=== PATIENT | male | born 1940 | race Caucasian/White ===

== ENCOUNTER 2018-03-08 14:36 | Inpatient (IN) ==
--- NOTE | 2018-03-08 14:48 | ED EKG INTERP ---
This chart was entered by Clara White Scribe, acting as scribe for Racheal Marinelli MD. EKG Interpretation - EKG Time of EKG reading by physician:: 14:45 EKG Read and Signed by:: Racheal Marinelli EKG Interpretation (*Must complete 3 of following elements*): Abnormal Rate: 77 Rhythm: nsr [place]: normal QRS: other (possible left atrial enlargement) CA Interval: normal Comments: anterior infarct, age undetermined Attestation - Physician/ SEB Attestation Patient care was provided by Advanced Practice Provider:: No The physician spent face to face time with patient:: Yes Advanced Practice Provider documentation review:: Supervising physician onsite and consulted in the evaluation and care of this patient. The physician did have a face to face encounter with the patient. This chart was documented by the indicated scribe, (Clara White Scribe) and accurately reflects the services I performed and decisions made by me, Racheal Marinelli MD, as attested by the provider's signature.
[2018-03-08] MEDS ORDERED: ASPIRIN PO ONE (14:50)
[2018-03-08 15:13] LABS: BASO# 0.01 X1000 (0.0-0.2); BASO% 0.1 % (0.0-0.8); EOS# 0.24 X1000 (0.0-0.7); EOS% 2.4 % (0.0-10.0); HEMATOCRIT 35.9 % (42.0-52.0); HEMOGLOBIN 11.7 g/dL (14.0-18.0); LYMPH# 0.74 X1000 (1.2-3.4); LYMPH% 7.3 % (20.5-51.1); MCH 30.5 PG (27-31); MCHC 32.6 g/dL (33-37); MCV 93.5 FL (81-99); MONO# 0.48 X1000 (0.11-0.59); MONO% 4.7 % (1.7-9.3); MPV 9.9 FL (7.4-10.4); NEUT# 8.71 X1000 (1.4-6.5); NEUT% 85.5 % (42.2-75.2); PLT 158 X1000 (130-400); RBC 3.84 XMIL (4.7-6.1); RDW 14.1 % (11.5-14.5); WBC 10.18 X1000 (4.8-10.8)
--- NOTE | 2018-03-08 15:14 | Diag Imaging Result Doc PS360 ---
EXAM: CHEST-2 VIEWS HISTORY: chest pain TECHNIQUE: Chest two views COMPARISON: 12/27/2017 FINDINGS: The lungs are hyperexpanded. The heart is not enlarged. The vessels are not distended. There are increased interstitial markings in the lung apices. No pleural effusions. IMPRESSION: Emphysema with likely apical fibrosis Electronically signed by Oscar Gould 03/08/2018 3:12 PM
[2018-03-08 15:29] LABS: INR 0.98; PROTIME 13.8 Seconds (11.0-16.0)
[2018-03-08 15:36] LABS: AGAP 11; ALB/GLOB RATIO 1.4; ALKALINE PHOSPHATASE 110 U/L (32-122); BUN 15 mg/dL (8-22); CALCIUM 8.9 mg/dL (8.8-10.2); CHLORIDE 101 mmol/L (98-107); COSMO 279; ESTIMATED GFR > 60; GLUCOSE 106 mg/dL (70-104); GOT 40 U/L (10-34); GPT 30 U/L (10-44); POTASSIUM 4.1 mmol/L (3.5-5.1); SODIUM 139 mmol/L (136-145); TCO2 27 mmol/L (25-35); TOTAL BILIRUBIN 0.53 mg/dL (0.20-1.00); TOTAL PROTEIN 6.8 g/dL (6.3-8.3)
[2018-03-08 15:38] LABS: CK PROFILE 218 U/L (24-204)
[2018-03-08 16:27] LABS: CK INDEX 2.2 (0.0-2.5); CK-MB 4.77 ng/mL (0.0-5.0)
[2018-03-08] MEDS ORDERED: DUONEB (A & A) INH ONE (16:55)
[2018-03-08] MEDS ORDERED: G.I. COCKTAIL PO ONE (16:55)
[2018-03-08] MEDS ORDERED: NS 1,000 ML IV ONE (18:25)
[2018-03-08] MEDS ORDERED: MORPHINE IV ONE ×2 (18:26→20:43)
[2018-03-08] MEDS ORDERED: ZOFRAN IV ONE (18:26)
[2018-03-08] MEDS ORDERED: NITROGLYCERIN LINGUAL SPRAY SL ONE (19:44)
--- NOTE | 2018-03-08 21:20 | Diag Imaging Result Doc PS360 ---
EXAM: CT ABD/PELVIS W/IV CONT ONLY HISTORY: abdominal pain TECHNIQUE: CT abdomen and pelvis with intravenous contrast COMPARISON: Comparison films are unavailable. FINDINGS: The gallbladder is distended. There is a small amount of pericholecystic fluid. The common bile duct measures 8 mm. Normal spleen, pancreas, and adrenal glands. Tiny liver. There are small scattered renal cysts. No hydronephrosis. Moderate atherosclerosis. No aortic aneurysm. No bowel obstruction. There is a penile implant. The urinary bladder is distended and is normal. Trace fluid in the pelvis. Normal appendix. No abscess. There are degenerative changes throughout the lumbar spine. IMPRESSION: 1.Distended gallbladder with trace pericholecystic fluid and trace fluid in the pelvis. Correlation needed to evaluate for cholecystitis. 2.Fatty liver 3.Atherosclerosis 4.Scattered renal cysts This exam was performed using automated exposure control, adjustment of mA or kV according to patient size, and/or use of iterative reconstruction technique. Electronically signed by Oscar Gould 03/08/2018 9:18 PM
[2018-03-08] MEDS ORDERED: ZOSYN 3.375 GM in NS 50 ML IV ONE (21:49)
--- NOTE | 2018-03-08 21:51 | PROVIDER DOCUMENTATION ---
This chart was entered by Clara White Scribe, acting as scribe for Christopher Blackman MD. HPI-Chest Pain - General Chief Complaint: Chest Pain Stated Complaint: CHEST PAIN Time Seen by Provider: 03/08/18 16:25 Source: patient Allergies/Adverse Reactions: Patient Allergies Allergy/AdvReac Type Severity Reaction Status Date / Time No Known Allergies Allergy Verified 07/10/13 15:37 Home Medications: Home Medication List Medication Instructions Recorded Confirmed Last Taken Type Omeprazole 20 mg PO DAILY 12/30/11 03/08/18 12/26/17 History Hydrocodone/Acetaminophen [[place] 5 mg PO BID PRN PRN 07/10/13 03/08/18 12/26/17 20:00 History 10-325 Tablet] Trazodone [Desyrel] 25 mg PO QHS PRN 12/27/17 03/08/18 12/26/17 History ATORVAstatin [Lipitor] 80 mg pe PO HS 03/08/18 03/08/18 Unknown History Aspirin [Low Dose Aspirin EC] 81 mg PO DAILY 03/08/18 03/08/18 Unknown History Metoprolol Succinate 25 mg PO DAILY 03/08/18 03/08/18 Unknown History Ticagrelor [Brilinta] 1 tab PO BID 03/08/18 03/08/18 Unknown History - History of Present Illness-CP Nature of Presenting Problem: 78 yom presents to the ed with last night with chest pain radiating to abdomen with sob. pt sts gerd has been worse recently and pcp increased his gerd medication x2 daily. pt on exam has normal exam and is nontoxic in appearance Location: reports: substernal Chest Pain Radiation: reports: epigastric Quality of Pain: reports: aching, burning Severity in ED: moderate (4/10) Onset/Duration: last night Timing: improving Context/Activities at Onset: reports: light activity Modifying Factors: improves with: nothing Associated Symptoms: reports: abdominal pain, fever/chills (99.1), shortness of breath. denies: back pain, dizziness, headache, nausea, vomiting Nitro Today/Relief: no nitro taken today Aspirin Treatment Today: no aspirin today Similar Symptoms Previously?: Yes (gerd) Recently Seen Here or By Another Healthcare Provider: Yes (seen pcp recenlty and increased gerd medications) Review of Systems - Adult - REVIEW OF SYSTEMS - ADULT Constitutional: reports: see HPI, fever (99.1). denies: chills, fatique Eyes: reports: no symptoms reported Ears, Nose, Mouth & Throat: reports: no symptoms reported Cardiovascular: reports: see HPI, chest pain. denies: palpitations, syncope Respiratory: reports: shortness of breath. denies: cough, wheezing Gastrointestinal: reports: see HPI, abdominal pain, frequent heartburn, poor appetite. denies: diarrhea, nausea, vomiting Genitourinary: reports: no symptoms reported Musculoskeletal: denies: back pain, neck pain Integumentary: reports: no symptoms reported Neurological: denies: dizziness/vertigo, headache/migraines Psychiatric: reports: no symptoms reported Endocrine: reports: no symptoms reported Hematologic/Lymphatic: reports: no symptoms reported Allergic/Immunologic: reports: no symptoms reported All Other Systems: Reviewed and Negative Past History - Adult - PAST MEDICAL HISTORY-ADULT Review of Records: reports: Old Records Reviewed, Nursing Assessment Review, Medications Reviewed, Social history reviewed & non-contributory. Major Childhood Illnesses: reports: denies history Cardiovascular: reports: denies history Respiratory: reports: denies history Gastrointestinal: reports: GERD Obstetrical/Gynecological: reports: denies history Genitourinary: reports: cancer (prostate) Musculoskeletal: reports: denies history Neurological: reports: denies history Endocrine/Immune: reports: denies history Other Conditions: reports: denies history - PRIOR SURGERIES/PROCEDURES Surgical/Procedure History: reports: reviewed, not pertinent - IMMUNIZATION STATUS Childhood Immunizations: See Nurse Assessment Flu Vaccine: See Nurse Assessment - FAMILY HISTORY Family History: reviewed, not pertinent - SOCIAL HISTORY Smoking: cigarettes, less than 1 pack/day Provider spent 3-5 mins advising pt. on dangers of tobacco.: Discussed manners to quit use, and f/u contacts for add'l counseling. Substance Use: denies Alcohol Use Frequency: never Living Situation: family Physical Exam-General - PHYSICAL EXAM-ADULT Initial Vital Signs Reviewed: Yes - CONSTITUTIONAL General Appearance: appears well, alert, no apparent distress - EYES Eyes: PERRL/EOMI, pink conjunctivae - HEAD, EARS, NOSE, MOUTH & THROAT HENMT: normocephalic/atraumatic, moist mucous membranes, normal ENT inspection - NECK Neck: non-tender, full range of motion, supple, normal inspection - RESPIRATORY Respiratory: chest non-tender, lungs clear, normal breath sounds - CARDIOVASCULAR Cardiovascular: normal peripheral pulses, regular rate, rhythm - CHEST (BREASTS) Chest/Breast: deferred - GASTROINTESTINAL (ABDOMEN) Abdominal Exam: normal bowel sounds, non tender - LYMPHATIC Lymphatic: no adenopathy - MUSCULOSKELETAL Back Exam: normal inspection, no CVA tenderness, no vertebral tenderness Extremity: normal range of motion, non-tender, normal inspection, no pedal edema , no calf tenderness, normal capillary refill, pelvis stable - SKIN Integumentary: normal color, normal turgor, warm/dry - NEUROLOGIC Neurologic: grossly normal, no motor/sensory deficits - PSYCHIATRIC Psych/Mental Status: normal mood/affect, normal thought content, normal thought process, oriented x 3 Progress - PLAN OF CARE/RESULTS Progress/Plan/Lab Results: Vital Signs - 8 hr 03/08/18 14:47 03/08/18 17:25 03/08/18 17:30 Temperature 99.1 F Pulse Rate 81 78 90 Respiratory Rate 18 20 24 Blood Pressure 145/53 133/61 O2 Sat by Pulse Oximetry 100 94 L 03/08/18 20:26 Temperature 99.0 F Pulse Rate 113 H Respiratory Rate 24 Blood Pressure 138/82 O2 Sat by Pulse Oximetry 95 Laboratory Results - last 24 hr 03/08/18 03/08/18 03/08/18 14:48 14:48 14:48 WBC 10.18 RBC 3.84 L Hgb 11.7 L Hct 35.9 L MCV 93.5 MCH 30.5 MCHC 32.6 L RDW Std Deviation 14.1 Plt Count 158 MPV 9.9 Immature Gran % (Auto) 0.0 Neut % (Auto) 85.5 H Lymph % (Auto) 7.3 L [place] % (Auto) 4.7 Eos % (Auto) 2.4 Baso % (Auto) 0.1 Immature Gran # (Auto) 0.00 Neut # (Auto) 8.71 H Lymph # (Auto) 0.74 L [place] # (Auto) 0.48 Eos # (Auto) 0.24 Baso # (Auto) 0.01 PT INR PTT (Actin FS) Sodium 139 Potassium 4.1 Chloride 101 Carbon Dioxide 27 Anion Gap 11 BUN 15 Creatinine 1.0 Estimated GFR/1.73 m2 > 60 BUN/Creatinine Ratio 15 Glucose 106 H Calculated Osmolality 279 Calcium 8.9 Total Bilirubin 0.53 AST 40 H ALT 30 Alkaline Phosphatase 110 Creatine Kinase 218 H Creatine Kinase Index 2.2 CK-MB (CK-2) 4.77 Troponin T Kcy-O-Yrzcecqsqtr Pept 722 H Total Protein 6.8 Albumin 4.0 Globulin 2.8 Albumin/Globulin Ratio 1.4 03/08/18 03/08/18 03/08/18 14:48 14:48 19:10 WBC RBC Hgb Hct MCV MCH MCHC RDW Std Deviation Plt Count MPV Immature Gran % (Auto) Neut % (Auto) Lymph % (Auto) [place] % (Auto) Eos % (Auto) Baso % (Auto) Immature Gran # (Auto) Neut # (Auto) Lymph # (Auto) [place] # (Auto) Eos # (Auto) Baso # (Auto) PT 13.8 INR 0.98 PTT (Actin FS) 28.0 Sodium Potassium Chloride Carbon Dioxide Anion Gap BUN Creatinine Estimated GFR/1.73 m2 BUN/Creatinine Ratio Glucose Calculated Osmolality Calcium Total Bilirubin AST ALT Alkaline Phosphatase Creatine Kinase 179 Creatine Kinase Index CK-MB (CK-2) Troponin T < 0.010 Huz-M-Ljxoaqgmkca Pept Total Protein Albumin Globulin Albumin/Globulin Ratio 03/08/18 19:10 WBC RBC Hgb Hct MCV MCH MCHC RDW Std Deviation Plt Count MPV Immature Gran % (Auto) Neut % (Auto) Lymph % (Auto) [place] % (Auto) Eos % (Auto) Baso % (Auto) Immature Gran # (Auto) Neut # (Auto) Lymph # (Auto) [place] # (Auto) Eos # (Auto) Baso # (Auto) PT INR PTT (Actin FS) Sodium Potassium Chloride Carbon Dioxide Anion Gap BUN Creatinine Estimated GFR/1.73 m2 BUN/Creatinine Ratio Glucose Calculated Osmolality Calcium Total Bilirubin AST ALT Alkaline Phosphatase Creatine Kinase Creatine Kinase Index CK-MB (CK-2) Troponin T < 0.010 Nij-W-Dbvuqlcynqj Pept Total Protein Albumin Globulin Albumin/Globulin Ratio Orders Category Date Time Status Cardiac Monitoring DIRECTED Care 03/08/18 14:50 Active Oxygen Therapy- ED Nursing DIRECTED Care 03/08/18 14:50 Active Saline Loc NOW Care 03/08/18 14:50 Active CHEST-2 VIEWS [RAD] Stat Exams 03/08/18 14:[address] ABD/PELVIS W/IV CONT ONLY [CT] Stat Exams 03/08/18 20:42 Completed CBC WITH ELECTRONIC DIFF [HEME] Stat Lab 03/08/18 14:48 Completed CK PROFILE [SP CHEM] Stat Lab 03/08/18 14:48 Completed CK PROFILE [SP CHEM] Stat Lab 03/08/18 19:10 Completed COMPREHENSIVE METABOLIC PANEL [CHEM] Stat Lab 03/08/18 14:48 Completed PRO B-NATRIURETIC PEPTIDE Stat Lab 03/08/18 14:48 Completed PROTIME WITH INR [COAG] Stat Lab 03/08/18 14:48 Completed PTT [COAG] Stat Lab 03/08/18 14:48 Completed TROPONIN T Stat Lab 03/08/18 14:48 Completed TROPONIN T Stat Lab 03/08/18 19:10 Completed 0.9% Sodium Chloride Inj [Ns] 1,000 ml Med 03/08/18 18:25 Discontinued IV 999 mls/hr Albuterol 2.5MG/Ipratrop 0.5MG [Duoneb (A & A)] Med 03/08/18 16:55 Discontinued 3 ml INH NOW ONE Aspirin Med 03/08/18 14:50 Discontinued 325 mg PO NOW ONE Lido/Barone Alk/Al&mg Hydrox [G.i. Cocktail] Med 03/08/18 16:55 Discontinued 30 ml PO NOW ONE Morphine Med 03/08/18 18:26 Discontinued 4 mg IV NOW ONE Morphine Med 03/08/18 20:43 Discontinued 4 mg IV NOW ONE Nitroglycerin [Nitroglycerin Lingual [place]] Med 03/08/18 19:44 Discontinued 0.4 gm SL PRN ONE Ondansetron [Zofran] Med 03/08/18 18:26 Discontinued 4 mg IV NOW ONE Aerosol Treatments Routine Oth 03/08/18 16:55 Completed Aerosol Treatments Stat Oth 03/08/18 16:55 Completed CP/SOB/Palp >45 yrs of Age Stat Oth 03/08/18 14:50 Ordered EKG [EKG] Stat Ther 03/08/18 14:50 Ordered Transfer/Admit Order [TRANSFER] Routine Transfer 03/08/18 21:03 Ordered Result Diagrams: 03/08/18 14:48 03/08/18 14:48 - REASSESSMENT Reassessment #1 Time Reassessed: 16:30 Status: unchanged Reassessment #2 Time Reassessed: 17:30 (has not got GI cocktail yet) Reassessment #3 Time Reassessed: 18:27 (will give NS, Zofrana nd morphine) Status: unchanged - XRAY 1 XRAY: Bilateral XRAY Study: Chest (EXAM: CHEST-2 VIEWS HISTORY: chest pain TECHNIQUE: Chest two views COMPARISON: 12/27/2017 FINDINGS: The lungs are hyperexpanded. The heart is not enlarged. The vessels are not distended. There are increased interstitial markings in the lung apices. No pleural effusions. IMPRESSION: Emphysema with likely apical fibrosis Electronically signed by Oscar Gould 03/08/2018 3:12 PM 03/08/18 151 Interpreting Physician: Oscar Gould MD Dictated Date/Time: 03/08/18 1511 cc: Racheal Marinelli MD; Cruz Sethi MD) - CT/MRI 1 CT Study: Abdomen, Pelvis Impression: Abnormal ([facility] [address], [address], [place] [address] Department of Imaging Patient: ASUNCION ROSE Date : 03/08/18#: [id number] : 1940DM Status: [facility]#: [id number] Age/Sex: 78/MRoom/Bed: Loc: ED Ordering Physician: Christopher Blackman MD Family Physician: Cruz Sethi MD Reason for Procedure: abdominal pain * Signed EXAM: CT ABD/PELVIS W/IV CONT ONLY HISTORY: abdominal pain TECHNIQUE: CT abdomen and pelvis with intravenous contrast COMPARISON: Comparison films are unavailable. FINDINGS: The gallbladder is distended. There is a small amount of pericholecystic fluid. The common bile duct measures 8 mm. Normal spleen, pancreas, and adrenal glands. Tiny liver. There are small scattered renal cysts. No hydronephrosis. Moderate atherosclerosis. No aortic aneurysm. No bowel obstruction. There is a penile implant. The urinary bladder is distended and is normal. Trace fluid in the pelvis. Normal appendix. No abscess. There are degenerative changes throughout the lumbar spine. IMPRESSION: 1.Distended gallbladder with trace pericholecystic fluid and trace fluid in the pelvis. Correlation needed to evaluate for cholecystitis. 2.Fatty liver 3.Atherosclerosis 4.Scattered renal cysts This exam was performed using automated exposure control, adjustment of mA or kV according to patient size, and/or use of iterative reconstruction technique. Electronically signed by Oscar Gould 03/08/2018 9:18 PM 03/08/182117 Interpreting Physician: Oscar Gould MD Dictated Date/Time: 03/08/182113 cc: Christopher Blackman MD; Cruz Sethi MD) - CONSULTS/PCP/HOSPITALIST Notification #1 *Consult/PCP/Hospitalist*: Dr naranjo Time Discussed: 19:46 (rec call cardiology after nitro) #2 Consult: Dr Richard Consult Disposition: Admit #3 Consult: Dr Naranjo Consult Disposition: Admit Departure - Departure Date of Disposition Decision: 03/08/18 Time of Disposition Decision: 21:42 DIAGNOSIS: Tobacco abuse, Acute cholecystitis Disposition: HOME 01 Certified Medical Emergency: Emergent Condition: Fair Additional Freetext Instructions: We have examined and treated you today on an emergency basis only. This was not a substitute for, or an effort to provide, complete medical care. In most cases , you must let your doctor check you again. Tell your doctor about any new or lasting problems. We cannot recognize and treat all injuries or illnesses in one Emergency Department visit. If you had special tests, such as X-rays or CT scans, will be reviewed by radiologist and will call you if there are any new suggestions Follow up with primary care provider in 1 to 2 days if no improvement. If you do not have a primary care provider, you need to choose one as soon as possible. Take medicines as prescribed. Monitor for any side effects or adverse events from medications. If any side effect, adverse event or rash develops, or if you suspect any other adverse reaction to the medication, then discontinue the medication immediately and contact clinic /PCP or go to the nearest ER. Narcotic meds / sedative meds instruction - patent advised not to drive, operate any machinery or go into water after taking meds as it may impair mental ability to react to the situation in an appropriate manner. Continue other current medicines. Follow up with PCP within 24-48 hours, or sooner if symptoms worsen or fail to improve. Patient / guardian verbalizes understanding of treatment plan, medication, and side effects and agrees with treatment plan. Patient leaves ER in stable condition and ambulatory state. Return to ER as needed. Discharge instructions reviewed verbally and given to patient in written form. Follow up with primary care provider. Referrals and Follow-Ups: Cruz Sethi MD [Primary Care Provider] - - Critical Care Note This patient required my direct & personal management of CC.: No Attestation - Physician/ SEB Attestation Patient care was provided by Advanced Practice Provider:: No The physician spent face to face time with patient:: Yes Advanced Practice Provider documentation review:: Supervising physician onsite and consulted in the evaluation and care of this patient. The physician did have a face to face encounter with the patient. This chart was documented by the indicated scribe, (Clara White Scribe) and accurately reflects the services I performed and decisions made by me, Christopher Blackman MD, as attested by the provider's signature.
[2018-03-09] MEDS ORDERED: TYLENOL PO PRN (00:34)
[2018-03-09] MEDS ORDERED: LOVENOX SUBQ SCH (00:34)
[2018-03-09] MEDS: PROTONIX IV SCH (02:30)
[2018-03-09] MEDS: SODIUM CHLORIDE 0.9% INJ SCH (02:30)
[2018-03-09] MEDS: MORPHINE IV PRN ×3 (02:30→14:30)
[2018-03-09] MEDS: ZOSYN 3.375 GM in NS 50 ML IV SCH ×4 (04:21→22:40)
[2018-03-09] MEDS: NS 1,000 ML IV SCH ×3 (05:00→22:26)
[2018-03-09 06:41] LABS: BASO# 0.01 X1000 (0.0-0.2); BASO% 0.1 % (0.0-0.8); EOS# 0.24 X1000 (0.0-0.7); EOS% 2.3 % (0.0-10.0); HEMOGLOBIN 11.4 g/dL (14.0-18.0); LYMPH# 0.47 X1000 (1.2-3.4); LYMPH% 4.5 % (20.5-51.1); MCH 30.3 PG (27-31); MCHC 32.6 g/dL (33-37); MCV 93.1 FL (81-99); MONO# 0.42 X1000 (0.11-0.59); MPV 10.3 FL (7.4-10.4); NEUT% 89.1 % (42.2-75.2); PLT 120 X1000 (130-400); RBC 3.76 XMIL (4.7-6.1); RDW 14.2 % (11.5-14.5); WBC 10.44 X1000 (4.8-10.8)
[2018-03-09 07:01] LABS: AGAP 10; BUN 11 mg/dL (8-22); CALCIUM 8.1 mg/dL (8.8-10.2); CHLORIDE 102 mmol/L (98-107); COSMO 275; ESTIMATED GFR > 60; GLUCOSE 97 mg/dL (70-104); POTASSIUM 3.9 mmol/L (3.5-5.1); SODIUM 138 mmol/L (136-145); TCO2 26 mmol/L (25-35)
[2018-03-09 07:32] LABS: EOS 8 % (1-10); LYMPHS 4 % (21-51); SEGS 88 % (42-75)
--- NOTE | 2018-03-09 07:40 | EKG Report ---
Test Performed on : 03/08/2018 2:45:24 PM Test Reason : chest pain Blood Pressure : / mmHG Vent. Rate : 077 BPM Atrial Rate : 077 BPM P-R Int : 154 ms QRS Dur : 094 ms QT Int : 384 ms P-R-T Axes : 073 050 095 degrees QTc Int : 434 ms Normal sinus rhythm. Possible Left atrial enlargement Anterior infarct , age undetermined Abnormal ECG When compared with ECG of 27-DEC-2017 12:49, Nonspecific T wave abnormality now evident in Inferior leads T wave inversion now evident in Anterior leads Unconfirmed Result
--- NOTE | 2018-03-09 07:41 | HISTORY AND PHYSICAL ---
PRIMARY CARE PHYSICIAN: Cruz Sethi MD REASON FOR ADMISSION: One-day history of retrosternal chest pain. HISTORY OF PRESENT ILLNESS: Mr. Carlos Patel is a 78-year-old man with past medical history of coronary artery disease status post stent 2 weeks ago. He also has a past medical history of hyperlipidemia and hypertension. He comes in today complaining of retrosternal chest pain, actually from last night with some mild shortness of breath before he went to bed. He awakened to still have the same symptoms and says they have pretty much remained the same in intensity. He reports that he woke up in addition to this with frequent belching and some mild epigastric discomfort. He says the retrosternal chest pain is like a burning sensation going down to his epigastrium. He says things got aggravated when he tried to eat a peanut butter sandwich a few hours later. He admits to having nausea, but no vomiting with his. He has no altered bowel movements or diarrhea. He denies any palpitations or lightheadedness. He denies any antecedent history of leg swelling, PND or orthopnea with this. No cough, fever or chills. He denies any arthralgia, rash, polyuria or polydipsia. Since he has been in the ER he was given a GI cocktail with no improvement in symptoms. He has received a sublingual nitroglycerin with no improvement. He got about 4 mg of morphine and said this made the biggest difference in his pain. ALLERGIES: Negative for any allergies. MEDICATIONS: Brilinta 90 mg b.i.d., Toprol 25 mg daily, atorvastatin 80 mg at bedtime, aspirin 81 mg daily, trazodone 25 mg at bedtime. PAST SURGICAL HISTORY: He has recent coronary artery stent, back surgery and bladder surgery. 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 He has had a prostatectomy. SOCIAL HISTORY: He does not smoke, drink or use illicit drugs. FAMILY HISTORY: First degrees relatives with breast cancer and stomach cancer, but no heart disease or diabetes in first-degree relatives. LABORATORY WORK: White count 10,000, hemoglobin 11, hematocrit 25, platelets 158,000. Glucose 106. AST is 40, ALT 30. CK is 218, follow-up CK 179, troponin x2 is negative, proBNP 722. PT is normal. Neutrophil count is actually 85%. A CT scan was ordered based on his symptoms because were initially concerned that he may have mesenteric ischemia; however, it did show a distended gallbladder with trace pericholecystic fluid and trace fluid in the pelvis, and recommended further imaging to correlate for acute cholecystitis. Fatty liver disease was noted. Atherosclerosis was also noted in the abdomen. PHYSICAL EXAMINATION: GENERAL: He is a thin, elderly man who is in mild distress from his pain. He is A and x3 with normal mood and affect. VITAL SIGNS: Blood pressure 138/82, heart rate 113, respirations 24, temperature 99. HEENT: Head is normocephalic, atraumatic. Eyes: PERRLA, EOMI. He is anicteric and not pale. ENT and oropharyngeal exam is grossly normal. No central cyanosis. NECK: Supple. He has noticeable JVD, no bruit or thyromegaly. CHEST: Surprisingly clear when I auscultated. There was good air entry in both lung zhang. CARDIOVASCULAR: First and second heart sounds are heard. No gallops, murmurs or rubs. Rhythm is regular. ABDOMEN: Scaphoid, soft with mild epigastric tenderness. Bowel sounds are normal, but I did not hear any bruit. RECTAL: Exam deferred. EXTREMITIES: The patient has 2+ pulses distally in all extremities. They are regular, symmetrical. No edema, clubbing or cyanosis. NEUROLOGIC: Other than mild intention tremor, no focal neurological deficits. Cranial nerves 2-12 are grossly intact. SKIN: Intact with no breakdown or erythema, with normal tumor. MUSCULOSKELETAL: Grossly normal with mild sarcopenia. ASSESSMENT: 1. Chest pain, somewhat atypical. Could be related to CT scan findings suggestive of cholecystitis. 2. Coronary artery disease status post stent 2 weeks ago. 3. Hypertension. 4. Hyperlipidemia. 5. Mild anemia. PLAN: I have ordered an abdominal sonogram to confirm that this patient does have acute cholecystitis and if it is equivocal maybe a HIDA scan might shed further light. The surgical team has been notified and will see him in the morning. The big problem with this patient is that he recently had a stent and for surgery to proceed they may need to either stop one or two of his antiplatelet medications. This would put the patient at high risk of having stent thrombosis and possible ACS. The big issue that needs to be resolved here is whether the patient can be treated electively with antibiotics for 4-6 weeks to pass by before surgery can be attempted. Unfortunately, I do not know what type of stent the patient had. It was a bare-metal stent, making it 4 weeks or 5, but if the patient has a drug-eluting stent, it may be much longer needed before surgery may be entertained. Will consult Cardiology for further input. Continue with beta blockers, statins and dual antiplatelet therapy. Also start the patient on Zosyn for empiric antibiotic treatment. Serial cardiac enzymes will also be done. Morphine will be administered for pain control. cc: MD Cruz Sanchez MD
--- NOTE | 2018-03-09 08:16 | Diag Imaging Result Doc PS360 ---
EXAM: US ABDOMEN-COMPLETE INDICATION: Acute cholecystitis COMPARISON: None. FINDINGS: The gallbladder wall appears thickened measuring up to 7 mm in thickness. There is trace pericholecystic fluid. Cholecystitis cannot be excluded. No gallstones are identified, however. The common bile duct is normal in diameter. Sonographic Moody's sign was reported to be negative. The liver is grossly unremarkable. Portal venous flow is hepatopetal. The visualized pancreas is unremarkable. The aorta and IVC are grossly unremarkable as imaged. The spleen is unremarkable. There is a 1.6 cm simple cyst at the upper pole of the right kidney. Kidneys are essentially unremarkable, otherwise. IMPRESSION: Apparent thickening of the gallbladder wall with trace pericholecystic fluid. Cholecystitis cannot be excluded. However, the netting inspector reported a negative sonographic Moody sign. Please correlate clinically. Electronically signed by Noah Gallardo 03/09/2018 8:14 AM
[2018-03-09] MEDS: ZOFRAN IV PRN ×2 (08:55→14:30)
[2018-03-09] MEDS ORDERED: ASPIRIN EC PO SCH (09:00)
[2018-03-09] MEDS: TOPROL XL PO SCH (09:18)
[2018-03-09] MEDS: BRILINTA PO SCH ×3 (09:18→22:25)
--- NOTE | 2018-03-09 09:28 | PROGRESS NOTE ---
DATE: 03/09/2018 He had a stent put in 3 weeks ago in [place]. He has been on Brilinta, which he has not been getting for about the last 12-[address] scan reveals the presence of dilated gallbladder with trace pancholecystic fluid and trace fluid in the pelvis. He has a fatty liver. Troponin is negative. EKG does not have any acute changes, except for the presence of anterior infarct that he had prior to the stent. We will continue IV piperacillin and get a surgical consult. cc: Cruz Sethi MD
--- NOTE | 2018-03-09 10:43 | GENERAL SURGERY CONSULTATION ---
DATE: 03/09/2018 REASON FOR CONSULT: I have been asked to see Mr. Patel for cholecystitis. HISTORY OF PRESENT ILLNESS: This is a 78-year-old gentleman who yesterday afternoon after eating a peanut butter and jelly sandwich developed nausea, vomiting, and abdominal discomfort. He denies any similar previous illness. Because of his nausea symptoms, he sought medical attention. He was admitted yesterday and underwent a workup revealing a dilated gallbladder with some pericholecystic fluid consistent with possible acute acalculous cholecystitis. He denies any similar previous attack. He does have a recent history of MD with a stent placed. He has been placed on Brilinta. The character of the stent and I do not know. PAST MEDICAL HISTORY: Pertinent for prostate cancer. PAST SURGICAL HISTORY: He has had a total prostatectomy and has had a urethral valve to prevent leakage, placed by Dr. Gonsales. He has had a back surgery in the distant past. He has had coronary stent placed in the past couple of months. SOCIAL HISTORY: He is . Denies smoking or illicit drug use or alcohol. FAMILY HISTORY: Pertinent for cancer but no heart disease. MEDICATIONS: Include Brilinta, Toprol, atorvastatin, aspirin, and trazodone. ALLERGIES: He has no known drug allergies. REVIEW OF SYSTEMS: As noted above and is negative in every subsystem except the GI subsystem. PHYSICAL EXAMINATION: Vital Signs: His temperature is 99.1 degrees, heart rate 71, blood pressure 118/46. General: He is thin. Neck: He has no cervical adenopathy. Respiratory: Bilateral breath sounds. Heart: Regular rate and rhythm. Abdomen: Scaphoid. He is nontender to palpation. He has a small right inguinal hernia. Extremities: No peripheral edema. Neurologic: He is awake and alert. LABORATORY: White count is 10,400. Chemistry is unremarkable. Troponin levels are negative. The ultrasound and CT scan suggests possible cholecystitis. ASSESSMENT: Possible acalculous cholecystitis in the setting of a patient on Brilinta for stent placement. PLAN: The Brilinta has been stopped. We will allow a couple of days for it and the clotting to normalize before considering surgery. In the meantime, I will allow him to have liquids. I will check a HIDA scan to prove patency of the cystic duct. cc: MD Cruz Vasquez MD
--- NOTE | 2018-03-09 15:19 | EKG Report ---
Test Performed on : 03/09/2018 3:07:17 PM Test Reason : CAD, Chest pain Blood Pressure : / mmHG Vent. Rate : 073 BPM Atrial Rate : 073 BPM P-R Int : 148 ms QRS Dur : 100 ms QT Int : 392 ms P-R-T Axes : 073 092 189 degrees QTc Int : 431 ms Normal sinus rhythm. Rightward axis Anterior infarct (cited on or before 08-MAR-2018) ST & T wave abnormality, consider lateral ischemia Abnormal ECG When compared with ECG of 08-MAR-2018 14:45, (Unconfirmed) Serial changes of Anterior infarct present Unconfirmed Result
--- NOTE | 2018-03-09 16:11 | CONSULTATION ---
DATE OF CONSULTATION: 03/09/2018 IMPRESSION: 1. Acute chest pain. Overall clinical presentation is somewhat atypical for myocardial ischemia in that patient's chest discomfort has been sustained for extended duration with normal serial troponins. 2. Abnormal abdominal CT study reporting gallbladder-wall thickening, with distended gallbladder and trace subha- cholecystic fluid. Raising concern regarding possible acute cholecystitis. 3. Atherosclerotic coronary disease. Patient presented with acute myocardial infarction 02/14/2018 and was found to have an acutely occluded/thrombosed mid left anterior descending coronary. He had emergent. Angioplasty/thrombectomy/drug-eluting stent placed to mid left anterior descending coronary. He has continued on dual anti-platelet therapy, since that time. Noninvasive imaging studies at that time indicated apical akinesis. 4. Hyperlipidemia. RECOMMENDATIONS: 1. Echocardiography. 2. The patient is indeed at high risk for stent thrombosis with interruption of dual anti- platelet therapy. This is certainly the case within 30 days of recent stent placement. Recommend continuing dual anti-platelet therapy until there is convincing clinical evidence that the patient needs an emergent cholecystectomy. This was discussed with Dr. Houston and this does not appear to be presently the case and further investigation is being pursued with HIDA scan. 3. May consider further evaluation of patient's coronary situation preoperatively. It may be reasonable to go ahead and consider coronary angiography for definitive evaluation given that noninvasive modalities of testing are not logistically possible. This patient will have HIDA scan in the a.m. and his echocardiography study is anticipated to be already abnormal at baseline. HISTORY: This 78-year-old white male with past history of atherosclerotic coronary disease, acute anteroapical myocardial infarction 02/14/2018 treated with emergent angioplasty/thrombectomy,/drug- eluting stent to mid left anterior descending coronary. Hyperlipidemia, hypertension, presented to the emergency room yesterday with acute chest pain. He describes substernal chest discomfort which he characterizes as a burning/pressure discomfort. There was some associated burning in the epigastric area. He states the discomfort is not quite like what he had with acute myocardial infarction last month. However he does relate that discomfort last month with acute SD was a substernal pressure discomfort. His current chest symptoms seem to be aggravated by eating. His chest discomfort has been pretty much persistent and relieved only with parenteral narcotic analgesics. GI cocktail failed to improve his symptoms. Sublingual nitroglycerin also failed to improve his symptoms. He presently relates very mild substernal discomfort and as the discomfort returns when the morphine wears off. Serial troponins have been normal. PAST MEDICAL HISTORY: 1. Atherosclerotic coronary disease as outlined above. 2. Hypertension. 3. Hyperlipidemia. 4. Prostate cancer. 5. Anemia. PAST SURGICAL HISTORY: Unspecified back surgery, prostatectomy, and unspecified bladder surgery. ALLERGIES: No known drug allergies. MEDICATIONS PRIOR TO ADMISSION: As listed. It was noted that he was Brilinta 90 mg p.o. b.i.d. and aspirin 81 mg p.o. daily in addition to Toprol-XL 25 mg p.o. daily and atorvastatin 80 mg p.o. daily. He was taking trazodone 25 mg p.o. at bedtime. SOCIAL HISTORY: He does not smoke nor use alcohol. FAMILY HISTORY: Negative for premature coronary disease. REVIEW OF SYSTEMS: Pulmonary: Negative. Gastrointestinal: Negative beyond history paternal grandfather present illness. Constitutional: Negative beyond history of present illness. Remainder review of systems negative/noncontributory beyond history of present illness with 14 total systems reviewed. PHYSICAL EXAMINATION: General: This is a thin, older white male in no distress. Vital signs: Blood pressure 136/51. Heart rate 73, oxygen saturation 96%. HEENT: Extraocular movements intact. Mucous membranes are moist. Neck: Supple. No jugular venous distention. There are no carotid bruits. Chest: Clear to auscultation. Cardiac: Reveals a regular rate and rhythm without appreciable murmur or gallop. Abdomen: Soft and nontender. I can elicit no right upper quadrant tenderness to palpation. Extremities: Without edema. Neurologic: Exam reveals him to be alert and fully oriented. Speech is fluent. He moves all 4 extremities equally well. EK-lead EKG not yet in electronic record. Report by Dr. Racheal Marinelli indicates sinus rhythm and anterior infarct of undetermined age. LABORATORY DATA: Includes a white blood cell count of 10.44, hematocrit 35.0, hemoglobin 11.4, platelet count 120,000. Sodium 138, potassium 3.9, chloride 102, carbon dioxide 26. BUN 11, creatinine 1.0, glucose 97, initial troponin less than 0.01. Followup troponin less than 0.01 and 3rd follow-up troponin less than 0.01. cc: MD Cruz Eaton MD
[2018-03-09] MEDS: LIPITOR PO SCH (22:25)
[2018-03-10] MEDS: ZOSYN 3.375 GM in NS 50 ML IV SCH ×4 (03:46→21:01)
[2018-03-10] MEDS ORDERED: NITROGLYCERIN ONE (06:40)
--- NOTE | 2018-03-10 07:24 | EKG Report ---
Test Performed on : 03/10/2018 06:50:54 AM Test Reason : chest pain Blood Pressure : / mmHG Vent. Rate : 089 BPM Atrial Rate : 089 BPM P-R Int : 132 ms QRS Dur : 082 ms QT Int : 386 ms P-R-T Axes : 057 033 069 degrees QTc Int : 469 ms Normal sinus rhythm. T wave abnormality, consider anterior ischemia Prolonged QT Abnormal ECG When compared with ECG of 09-MAR-2018 15:07, (Unconfirmed) Questionable change in QRS axis T wave inversion no longer evident in Inferior leads Nonspecific T wave abnormality has replaced inverted T waves in Lateral leads Confirmed by Mita BROWNING, Artis Hernandez ([id number]) on 03/10/2018 7:32:26 PM
--- NOTE | 2018-03-10 08:20 | ECHO REPORT ---
ORDER DATE: 03/10/2018 INTERPRETING PHYSICIAN: Dr. Rivera CLINICAL INDICATIONS: Chest pain, angina, recent stent. M-MODE MEASUREMENTS: Left ventricle end diastole: 3.5 cm. Left ventricle end systole: 2.2 cm. Posterior wall: 0.9 cm. Interventricular septum: 1.0 cm. Left atrium: 4.1 cm. Aortic root: 3.1 cm. SUMMARY OF 2-DIMENSIONAL IMAGING: The left ventricular function appears to be globally preserved in the range of 55-60%. There is hypokinesis of moderate degree involving the anteroapical segment specifically the distal septum, the distal anterior wall, the mid anteroseptal segment and the apex. The chamber is not dilated. Right ventricle and the atria appear to be normal. There is no pericardial effusion. The inferior vena cava is not dilated. The tricuspid valve shows a moderate degree of regurgitation. The pulmonary pressure is estimated at 42-47 mmHg. Pulmonic valve was normal. The mitral valve is normal. Color flow mapping indicates mild degree of regurgitation. Pulse wave Doppler of mitral inflow shows mild reversal of the E/A ratio. Tissue Doppler of septal and lateral mitral annulus averages 14 cm per second. Pulmonary venous flow is normal. There is no diastolic dysfunction. Aortic valve has 3 cusps. They open normally. Color flow mapping unremarkable. There is no pericardial effusion, mass and no thrombus. Clinical correction recommended. cc: MD Sandoval Antonio MD Amit V. Vora, MD
--- NOTE | 2018-03-10 08:25 | PROGRESS NOTE ---
DATE: 03/10/2018 SUBJECTIVE: The patient continues with episodic substernal chest discomfort. There has been no shortness of breath. He is having a HIDA scan done to further evaluate his gallbladder. OBJECTIVE: Vital Signs: Blood pressure 124/76, heart rate 87, oxygen saturation 96%. Neck: There is no significant jugular venous distention. Chest: Clear to auscultation. Cardiac Examination: Reveals a regular rate and rhythm without appreciable murmur or gallop. Extremities: There is no evidence of peripheral edema. Laboratory Data: Includes serial troponins consistent with less than 0.01 x 4 values. ECG shows sinus rhythm and T-wave abnormality, consider anterior ischemia versus residual changes from recent anteroapical [place]. There have been no serial changes. IMPRESSION: 1. Acute chest pain syndrome. Overall presentation is somewhat atypical for myocardial ischemia given sustained duration with normal serial troponins. However, it is difficult to exclude ischemia entirely. Alternative etiologies are being considered including gallbladder disease. Esophageal discomfort may also be considered. 2. Abnormal CT scan reportedly suggesting possible acute cholecystitis. 3. Atherosclerotic coronary disease. Patient presented with acute myocardial infarction 02/14/2018, was found to have acutely occluded thrombosed mid left anterior descending coronary artery. He had emergent angioplasty/thrombectomy/drug-eluting stent placed in mid left anterior descending coronary artery. He is continued on dual antiplatelet therapy with aspirin 81 mg daily and Brilinta since that time. Noninvasive studies at that time indicated apical akinesis. Repeat echocardiography pending. 4. Hyperlipidemia. RECOMMENDATIONS: 1. Followup echocardiography. 2. Definitive evaluation of his coronary arteries is probably prudent. I discussed with the patient and recommended coronary angiography to be certain of his stent patency. The rationale for this approach and alternative strategies were discussed, and he wishes to proceed. Potential hazards were reviewed. 3. Patient is at high risk for stent thrombosis with interruption of dual anti-platelet therapy. cc: MD Cruz Eaton MD
[2018-03-10] MEDS: MORPHINE IV PRN ×2 (08:59→13:06)
[2018-03-10] MEDS: ZOFRAN IV PRN ×2 (09:00→18:33)
--- NOTE | 2018-03-10 09:15 | PROGRESS NOTE ---
DATE: 03/10/2018 He is still operator gin in the right upper quadrant of the abdomen where the gallbladder is. He had HIDA scan done this morning. He had an echocardiogram, which is unremarkable. He probably has a drug-eluting stent. Brilinta has been restarted by Dr. Merino. We will revaluate him after the other HIDA scan results are back. cc: Cruz Sethi MD
[2018-03-10] MEDS: BRILINTA PO SCH ×2 (09:52→21:01)
[2018-03-10] MEDS: TOPROL XL PO SCH (09:53)
[2018-03-10] MEDS: PROTONIX IV SCH (09:53)
[2018-03-10] MEDS: NS 1,000 ML IV SCH ×3 (09:55→20:13)
[2018-03-10] MEDS ORDERED: HEPARIN 1000 UNITS/NS 2,000 UNIT/1,000 ML IV.SOLN ONE (10:49)
[2018-03-10 11:15] LABS: INR 1.24; PROTIME 16.6 Seconds (11.0-16.0)
[2018-03-10] MEDS ORDERED: VERSED ONE (11:23)
[2018-03-10] MEDS ORDERED: NS 1,000 ML ONE (11:23)
[2018-03-10] MEDS ORDERED: CLAVE TWINSITE 32 IN 11959 ONE (11:23)
[2018-03-10] MEDS ORDERED: DEMEROL ONE (11:23)
[2018-03-10] MEDS ORDERED: ANESTHESIA PB SET 88 IN 5742 ONE (11:23)
[2018-03-10 12:00] LABS: AGAP 13; BUN 12 mg/dL (8-22); CHLORIDE 103 mmol/L (98-107); COSMO 277; CREATININE 1.1 mg/dL (0.7-1.2); ESTIMATED GFR > 60; GLUCOSE 97 mg/dL (70-104); MAGNESIUM 1.8 mg/dL (1.5-2.7); POTASSIUM 3.5 mmol/L (3.5-5.1); SODIUM 139 mmol/L (136-145); TCO2 23 mmol/L (25-35)
--- NOTE | 2018-03-10 13:18 | CARDIAC CATH REPORT ---
DATE: 03/10/2018 PROCEDURE: 1. Left heart catheterization. 2. Selective bilateral coronary arteriography. 3. Left ventriculography. 4. Opacification of the right femoral artery with deployment of a 6-Prydeinig Angio -Seal device. HISTORY: A 78-year-old male presenting to the hospital with chest pain. He had received a stent to the LAD that was almost completely occluded with acute NV in January on by Dr. Alexey Reid at [facility]. Good results were obtained. The patient has been taking Brilinta and aspirin. He is not a smoker at this time. Heart catheterization recommended by Dr. Merino who saw the patient in consultation. Benefits, risks, complications discussed. He understood and requested to proceed. DESCRIPTION OF PROCEDURE: The patient came into the cardiac laborer [employer] in the fasting state. The right groin was prepped and draped in sterile fashion, anesthetized with lidocaine 1%. A 6-Prydeinig sheath was inserted into the right femoral artery by following the modified Seldinger technique. Using a 6-Prydeinig left Iris 4 catheter, the left coronary artery was selectively opacified. The aortic valve was negotiated with a right Iris catheter. Left ventriculogram was performed in the 60-degree SWISS projection, 30-degree JONATHAN projection by hand injection. Then using the right Iris catheter, the right coronary artery was selectively opacified in multiple projections. Then a 6-Prydeinig Angio-Seal device was deployed at the level of the right femoral artery following opacification of the right femoral artery. The case was discussed with Dr. Alexey Reid over the phone prior to closing the arteriotomy. The patient tolerated the procedure well without complications. SUMMARY OF THE HEMODYNAMIC FINDINGS: Central aortic pressure 102/37, left ventricular pressure 105/7. Post LV gram left ventricular pressure 105/11. Final central aortic pressure 105/50. LVEDP is normal. SUMMARY OF THE ANGIOGRAPHIC FINDINGS: 1. Left main coronary artery: This vessel appears to be anatomically normal, divides into LAD, a ramus intermedius and circumflex. The left main appears to be free of any significant obstruction. There may be a 20% tapering of the vessel prior to its bifurcation. 2. Left anterior descending coronary artery: This vessel shows a proximal diffuse stenosis of 40% to 50% prior to the area that has been previously stented. The stented segment is patent. The LAD gives rise to 2 small diagonal branches distally. The flow is LEILA grade 3. 3. Ramus intermedius: This vessel is probably a first diagonal branch but it behaves more like a ramus intermedius. This vessel is patent and free of any obstruction. 4. Circumflex: The circumflex is a nondominant system, gives rise to 2 small obtuse marginal branches and a small-sized atrial branch. Circumflex is free of obstruction. 5. Right coronary artery: The right coronary artery is a dominant system. It gives rise to the sinus carlyn branch. Distally it gives rise to a posterior descending branch and a posterolateral vessel. The right coronary artery is patent. No obstruction is noted. LEFT VENTRICULOGRAM: Left ventriculogram in the 30-degree JONATHAN projection and 60 -degree SWISS projection reveals overall preserved ejection fraction in the order of 55% to 60 % with focal akinesis of the apical septal segment. No mitral regurgitation noted. OPACIFICATION OF THE RIGHT FEMORAL ARTERY: The right femoral artery is normal. Angio-Seal device was deployed successfully. IMPRESSION: In summary, this study shows: 1. Patent stent to mid LAD with a proximal 40% to 50% diffuse stenosis that has been present before. No new changes are noted. The right coronary artery is patent. The circumflex is patent, and the ramus intermedius is patent. 2. Preserved global left ventricular systolic function. Ejection fraction 55% to 60% with apical septal akinesis. 3. Normal LVEDP. 4. No mitral regurgitation, no aortic stenosis. 5. Unremarkable right femoral artery. Successful deployment of Angio-Seal device. RECOMMENDATION: The patient will be treated medically at this time. I discussed the case with Dr. Alexey Reid who reviewed the pictures, and in his opinion from the angiographic viewpoint, there is really no need to intervene any further. We will see how the patient does clinically. We will probably discharge him home in the next 24- 48 hours. cc: MD Cruz Antonio MD MTDD
--- NOTE | 2018-03-10 13:58 | GENERAL SURGERY PROGRESS NOTE ---
DATE: 03/10/2018 TIME: 1:20 p.m. SUBJECTIVE: Mr. Patel had a HIDA scan this morning. I do not know the results. He had a cardiac cath today as well, and it showed patency of his vessels. He is back on his Brilinta because of his drug-eluting stent. OBJECTIVE: We will see what his HIDA scan shows and that will help us decide how urgent his gallbladder surgery may become. I have discussed this with he and his . cc: MD Cruz Vasquez MD
[2018-03-10] MEDS: NORCO-5 PO PRN (14:16)
[2018-03-10] MEDS: LIPITOR PO SCH (21:01)
[2018-03-11] MEDS: NS 1,000 ML IV SCH ×3 (04:01→22:58)
[2018-03-11] MEDS: ZOSYN 3.375 GM in NS 50 ML IV SCH ×5 (04:01→22:57)
--- NOTE | 2018-03-11 07:29 | Diag Imaging Result Doc PS360 ---
EXAM: HIDA SCAN W/O EJECT. FRACTION HISTORY: abd pain TECHNIQUE: Nuclear medicine HIDA scan COMPARISON: None. FINDINGS: 5.8 mCi Choletec administered. There is normal uptake within the liver. Normal excretion into the small bowel. Activity in the gallbladder fossa may simply be within the common bile duct are bowel rather than in the gallbladder. IMPRESSION: Questionable filling of the gallbladder. Electronically signed by Oscar Gould 03/11/2018 7:26 AM
--- NOTE | 2018-03-11 07:53 | EKG Report ---
Test Performed on : 03/10/2018 8:12:44 PM Test Reason : S/P [facility] Blood Pressure : / mmHG Vent. Rate : 071 BPM Atrial Rate : 071 BPM P-R Int : 142 ms QRS Dur : 090 ms QT Int : 396 ms P-R-T Axes : 053 024 096 degrees QTc Int : 430 ms Normal sinus rhythm. Possible Left atrial enlargement Anterior infarct , age undetermined ST & T wave abnormality, consider lateral ischemia Abnormal ECG When compared with ECG of 10-MAR-2018 06:50, Nonspecific T wave abnormality now evident in Inferior leads Inverted T waves have replaced nonspecific T wave abnormality in Anterolateral leads Confirmed by Mita BROWNING, Artis Hernandez ([id number]) on 03/11/2018 9:10:36 AM
--- NOTE | 2018-03-11 08:15 | GENERAL SURGERY PROGRESS NOTE ---
DATE: 03/11/2018 SUBJECTIVE: Mr. Patel is afebrile. Heart rate 90. Blood pressure 103/42. He had some nausea yesterday with p.o. intake, but denies nausea this morning. His abdomen is not tender. His HIDA scan was not read to this morning but shows a probable nonvisualization of his gallbladder, at best minimal visualization. ASSESSMENT AND PLAN: I think it is fair to assume he does have acalculous cholecystitis. In view of the mandate for Brilinta, this makes surgery for his gallbladder much riskier. I would recommend that we keep him on antibiotics to see if we can calm his cholecystitis down over the weekend and hopefully resolved it with antibiotic therapy and avoid surgery currently. If, however, he does not improve or worsens, then we may have to do his cholecystectomy on Brilinta, which would increase his bleeding risk significantly. He understands the quandary that we are in. [facility] will cover the weekend. cc: MD Cruz Vasquez MD
[2018-03-11] MEDS: TOPROL XL PO SCH (08:34)
[2018-03-11] MEDS: ASPIRIN PO SCH (08:34)
[2018-03-11] MEDS: PROTONIX IV SCH (08:34)
[2018-03-11] MEDS: BRILINTA PO SCH ×2 (08:34→20:10)
--- NOTE | 2018-03-11 10:05 | PROGRESS NOTE ---
DATE: 03/11/2018 SUBJECTIVE: Mr. Patel is doing better. He can eat now. He is slightly nauseous. He has a distended gallbladder. His catheterization studies showed about 40% blockage in LAD. I read the notes from Dr. Rivera, who talked to Dr. Reid and no further intervention is necessary. His ejection fraction is 55%. he had a HIDA scan done which revealed there was a questionable filling of the gallbladder on the HIDA scan. The patient's vital signs are stable. Electrolytes are stable. Magnesium is 1.8. He is getting IV Zosyn which we will continue is tolerating it well. cc: Cruz Sethi MD
[2018-03-11] MEDS ORDERED: SODIUM CHLORIDE 0.9% INJ SCH (12:45)
[2018-03-11] MEDS ORDERED: CARAFATE PO SCH (13:00)
--- NOTE | 2018-03-11 13:14 | PROGRESS NOTE ---
DATE: 03/11/2018 SUBJECTIVE: Patient continues with episodic substernal chest discomfort. There has been no abdominal discomfort. There has been no dyspnea. OBJECTIVE: Vital Signs: Blood pressure 114/50, heart rate 71, oxygen saturation 99%. There is no significant jugular venous distention. Chest: Clear to auscultation. Cardiac Exam: Reveals a regular rate and rhythm without appreciable murmur or gallop. Abdomen: Soft and nontender. There is no right upper quadrant tenderness. Extremities: Without edema. LABORATORY DATA: Includes a pro time 16.6, INR 1.24 yesterday. Magnesium is 1.8. Nuclear medicine HIDA scan reports questionable filling of the gallbladder. Coronary angiography demonstrates patent stent in left anterior descending coronary with approximately 40% segmental narrowing proximal to stent in left anterior descending coronary. IMPRESSION: 1. Acute chest pain syndrome. Evaluation suggests chest symptoms noncardiac and coronary angiography demonstrates patent stent in left anterior descending coronary artery. 2. Abnormal imaging study suggesting possible biliary source of symptoms. 3. Atherosclerotic coronary disease with acute myocardial infarction 02/14/2018 with patient being found to have an acutely occluded thrombosed mid LAD treated with emergent angioplasty, thrombectomy and drug-eluting stent to the mid left anterior descending coronary. Echocardiography this admission indicates left ventricular ejection fraction in the normal range 55 to 60% with hypokinesis of the anterior apical segment and distal septum, distal wall and mid anteroseptal segment of the apex. Coronary angiography this admission shows stent in LAD to be patent. RECOMMENDATIONS: 1. Patient is at high risk for stent thrombosis with interruption of dual anti-platelet therapy within 30 days of drug-eluting stent. If cholecystectomy imperative, it would probably be best to perform this on continued dual anti-platelet therapy with Brilinta and aspirin. 2. The risk of stent thrombosis with interruption of dual anti-platelet therapy will progressively decline over months 1 and 6 post drug-eluting stent placement. Ideally it is hoped that we could get the patient past 6 months post drug-eluting stent placement before Brilinta is interrupted. 3. Would aggressively try and treat esophagitis as well as give antibiotics for cholecystitis in hopes of alleviating his symptoms to facilitate a conservative approach to his noncardiac chest symptoms. cc: MD Cruz Eaton MD
[2018-03-11] MEDS: ZOFRAN IV PRN ×2 (14:32→19:54)
[2018-03-11] MEDS: MORPHINE IV PRN (14:32)
[2018-03-11] MEDS: CARAFATE PO SCH ×3 (14:35→20:15)
[2018-03-11] MEDS: PEPCID IV SCH (16:11)
[2018-03-11] MEDS ORDERED: SODIUM CHLORIDE 0.9% INJ PRN (16:21)
[2018-03-11] MEDS: PHENERGAN IV PRN ×2 (16:44→20:55)
[2018-03-11] MEDS: LIPITOR PO SCH (20:09)
[2018-03-12] MEDS: ZOSYN 3.375 GM in NS 50 ML IV SCH ×4 (03:17→21:37)
[2018-03-12] MEDS: PROTONIX IV SCH (06:19)
[2018-03-12] MEDS: PEPCID IV SCH ×2 (06:20→17:08)
[2018-03-12] MEDS: CARAFATE PO SCH ×3 (08:06→21:37)
[2018-03-12] MEDS: BRILINTA PO SCH ×2 (08:06→21:37)
[2018-03-12] MEDS: TOPROL XL PO SCH (08:06)
[2018-03-12] MEDS: ASPIRIN PO SCH (08:06)
--- NOTE | 2018-03-12 09:45 | GENERAL SURGERY PROGRESS NOTE ---
DATE: 03/12/2018 SUBJECTIVE: The patient denies any significant abdominal pain or nausea this morning. He is starting to drink some liquids without difficulty. OBJECTIVE: He is afebrile. Vital signs are stable. General: He is awake, alert, and oriented x3 in no acute distress. Gastrointestinal: Soft, nontender, nondistended. LABORATORY: None today. ASSESSMENT AND PLAN: A 78-year-old male with acalculous cholecystitis and severe coronary artery disease status post recent stent placement. I will continue to treat him conservatively with antibiotics and continue his dual anticoagulation therapy. Hopefully, he will recover well enough to avoid surgery at this time. cc: MD Cruz Guardado MD
[2018-03-12] MEDS: NS 1,000 ML IV SCH (12:23)
--- NOTE | 2018-03-12 13:33 | PROGRESS NOTE ---
DATE: 03/12/2018 SUBJECTIVE: The patient had some discomfort in the mid lower sternal area with deep inspiration but overall seems to be managing better. OBJECTIVE: T-max 100.2; current 99.6. Pulse 71, respiration 16, blood pressure 117/51, O2 sat 95% to 100% percent on 2 to 2.5. CV: RRR. Lungs clear. Abdomen soft. Active bowel sounds. Mild tenderness in right epigastrium and right upper quadrant area. Extremities: Trace lower extremity edema. No cords. Neurologic: Cranial nerves are intact. He moves all extremities well. ASSESSMENT: 1. Acalculous cholecystitis. 2. Esophagitis. 3. Coronary artery disease with history of recent drug-eluting stent placement on dual anti- platelet therapy with strict requirement. 4. Hypercholesterolemia. PLAN: Patient on IV Zosyn and seems to be a little better. Continue IV Pepcid. Continue aspirin and Brilinta. He is also on IV Protonix. He is on his atorvastatin and metoprolol. He is receiving Carafate. Continue supportive measures in hopes he will be able to avoid surgery this close to stent placement in his coronary vessels. cc: MD Cruz Velasquez MD
[2018-03-12] MEDS: MORPHINE IV PRN (14:12)
[2018-03-12] MEDS: PHENERGAN IV PRN (21:36)
[2018-03-12] MEDS: LIPITOR PO SCH (21:36)
[2018-03-13] MEDS: ZOSYN 3.375 GM in NS 50 ML IV SCH ×4 (03:41→22:14)
[2018-03-13] MEDS: PEPCID IV SCH ×2 (05:16→16:54)
[2018-03-13] MEDS: PROTONIX IV SCH ×3 (05:16→07:10)
[2018-03-13] MEDS: NS 1,000 ML IV SCH ×2 (05:28→08:30)
[2018-03-13] MEDS: CARAFATE PO SCH ×3 (08:29→20:09)
[2018-03-13] MEDS: ASPIRIN PO SCH (08:29)
[2018-03-13] MEDS: BRILINTA PO SCH ×2 (08:29→20:08)
[2018-03-13] MEDS: TOPROL XL PO SCH (08:29)
--- NOTE | 2018-03-13 09:04 | GENERAL SURGERY PROGRESS NOTE ---
DATE: 03/13/2018 SUBJECTIVE: The patient denies any significant abdominal pain, nausea, or vomiting. He is tolerating some food, but says he cannot eat much. I think it is because he does not like it. OBJECTIVE: Vital signs: He is afebrile. Vital signs are stable. General: He is awake, alert, oriented x3. No acute distress. Gastrointestinal: Soft, nontender, nondistended. ASSESSMENT AND PLAN: A 78-year-old male with acalculous cholecystitis and coronary artery disease, status post stent placement, on anticoagulation. At this time there appears to be some improvement of his cholecystitis symptomatically and we will continue with conservative therapy with antibiotics at this time and advance his diet as tolerated. cc: MD Cruz Guardado MD
--- NOTE | 2018-03-13 12:19 | PROGRESS NOTE ---
DATE: 03/13/2018 SUBJECTIVE: The patient seems to be feeling a little better. He is still having some belching when he eats, but overall is eating fairly well. OBJECTIVE: Vital signs: Afebrile. Vital signs stable. He ate 100% of his meal this morning. CARDIOVASCULAR: Regular rate and rhythm. Lungs: Clear. Abdomen: Soft, active bowel sounds. No pinpoint tenderness. Extremities: No calf tenderness, cords or edema. ASSESSMENT: 1. Acalculous cholecystitis. 2. Esophagitis. 3. Coronary artery disease with history of recent drug-eluting stent placed. Patient remains on dual anti-platelet therapy with strict requirement. 4. Hypercholesterolemia. PLAN: Continue IV Zosyn and IV Pepcid and IV Protonix. He is on Carafate as well. Continue aspirin and Brilinta. He seems to be settling down some in regard to #1. We will continue conservative management. cc: MD Cruz Velasquez MD
[2018-03-13] MEDS: ZOFRAN IV PRN (14:33)
[2018-03-13] MEDS: PHENERGAN IV PRN (20:08)
[2018-03-13] MEDS: LIPITOR PO SCH (20:09)
[2018-03-13] MEDS: MORPHINE IV PRN (22:07)
[2018-03-14] MEDS: PEPCID IV SCH ×2 (04:17→17:19)
[2018-03-14] MEDS: ZOSYN 3.375 GM in NS 50 ML IV SCH ×4 (04:18→21:04)
[2018-03-14] MEDS: NS 1,000 ML IV SCH (04:18)
[2018-03-14] MEDS: PROTONIX IV SCH (06:20)
[2018-03-14] MEDS: ASPIRIN PO SCH (08:26)
[2018-03-14] MEDS: CARAFATE PO SCH ×3 (08:26→21:04)
[2018-03-14] MEDS: TOPROL XL PO SCH (08:26)
[2018-03-14] MEDS: BRILINTA PO SCH ×2 (08:26→21:04)
--- NOTE | 2018-03-14 09:16 | PROGRESS NOTE ---
DATE: 03/14/2018 SUBJECTIVE: Mr. Patel is doing well, except that he gets nauseous as the day advances and needs Phenergan. OBJECTIVE: Abdomen: Is soft, nontender. Lungs: Clear. Cardiac: Heart sounds are normal. He denies having any chest pains. ASSESSMENT AND PLAN: He has acalculous cholecystitis, recently placed drug-eluding stent in left anterior descending and he had acute myocardial infarction prior to that. He is on anti-platelet therapy. Overall condition is otherwise stable. The family and the patient also understand the risk either way, especially risk after surgery if he stops the Brilinta. Overall condition is otherwise stable. We will continue with the current management. cc: Cruz Sethi MD
[2018-03-14 10:30] LABS: BASO# 0.13 X1000 (0.0-0.2); BASO% 1.1 % (0.0-0.8); EOS# 3.25 X1000 (0.0-0.7); EOS% 27.2 % (0.0-10.0); HEMATOCRIT 32.8 % (42.0-52.0); HEMOGLOBIN 10.7 g/dL (14.0-18.0); IMM GRAN# 0.03 X1000 (0.0-0.04); IMM GRAN% 0.3 % (0.0-0.5); LYMPH# 1.51 X1000 (1.2-3.4); LYMPH% 12.6 % (20.5-51.1); MCH 29.7 PG (27-31); MCHC 32.6 g/dL (33-37); MCV 91.1 FL (81-99); MONO# 0.65 X1000 (0.11-0.59); MONO% 5.4 % (1.7-9.3); MPV 10.3 FL (7.4-10.4); NEUT# 6.37 X1000 (1.4-6.5); NEUT% 53.4 % (42.2-75.2); PLT 114 X1000 (130-400); RDW 14.2 % (11.5-14.5); WBC 11.94 X1000 (4.8-10.8)
[2018-03-14 10:36] LABS: ALB/GLOB RATIO 0.8; ALBUMIN 2.3 g/dL (3.5-5.0); DIRECT BILIRUBIN 0.4 mg/dL (0.00-0.20); TOTAL BILIRUBIN 0.77 mg/dL (0.20-1.00); TOTAL PROTEIN 5.2 g/dL (6.3-8.3)
--- NOTE | 2018-03-14 11:21 | GENERAL SURGERY PROGRESS NOTE ---
DATE: 03/14/2018 Ms. Patel says he feels some better. He does well in the morning, but seems to have more troubles in the afternoon with nausea and yesterday, pain and nausea. He required morphine and Phenergan last night. He is afebrile. Abdomen is soft, and he does not have a particular amount of tenderness. He did say that "something has to be done." Today, I will re-ultrasound his gallbladder to look and see how dilated it is. We will repeat his CBC and hepatic function test. Then after that, we will decide the benefits and risks of operative intervention. cc: MD Cruz Vasquez MD
--- NOTE | 2018-03-14 12:52 | Diag Imaging Result Doc PS360 ---
EXAM: US GB < RUQ (LIMITED) HISTORY: acalculous cholecystitis TECHNIQUE: Right upper quadrant ultrasound COMPARISON: 03/09/2018 FINDINGS: Normal pancreas. Moderate atherosclerosis. No aortic aneurysm. Normal inferior vena cava. No focal hepatic abnormality. No ascites in the right upper quadrant. Normal right kidney. No hydronephrosis. There is a 1.7 cm cyst superiorly on the right kidney. The gallbladder wall remains thickened. No stones. The common bile duct measures 6 mm. IMPRESSION: Thickening to the gallbladder wall which could represent acute cholecystitis. Electronically signed by Oscar Gould 03/14/2018 12:50 PM
[2018-03-14] MEDS: ZOFRAN IV PRN ×2 (15:36→21:12)
[2018-03-14] MEDS: MORPHINE IV PRN ×2 (15:36→21:12)
--- NOTE | 2018-03-14 19:28 | PROGRESS NOTE ---
DATE: 03/14/2018 SUBJECTIVE: The patient relates no chest discomfort since yesterday. He still has some tendency for nausea when he eats. OBJECTIVE: Vital Signs: Blood pressure 125/51, heart rate 67, oxygen saturation 100% on room air. There is no significant jugular venous distention. Chest: Clear to auscultation. Cardiac exam: Reveals a regular rate and rhythm without appreciable murmur or gallop. Abdomen: Soft. There is no abdominal tenderness. There is no right upper quadrant tenderness. Extremities: Are without edema. LABORATORY DATA: Includes a white blood cell count 11.94, hematocrit 32.8, hemoglobin 10.7, platelet count 114,000. Total bilirubin 0.77, direct bilirubin 0.4, AST 50, ALT 87, alkaline phosphatase 579, albumin 2.3. IMPRESSION: 1. Acute chest pain syndrome with evaluation suggesting noncardiac etiology and very likely related to gallbladder. 2. Atherosclerotic coronary disease with acute myocardial infarction. 02/14/2018 treated with emergent angioplasty/stenting with thrombectomy of acutely thrombosed mid left anterior descending coronary. Drug-eluting stent was utilized. Repeat angiography this admission shows stent to be widely patent. Left ventricular ejection fraction 55 to 60% with hypokinesis of apical anterior wall, apical septum, and apex. RECOMMENDATIONS: 1. Continue current cardiovascular regimen unchanged. 2. Patient is high risk for stent thrombosis with interruption of dual anti-platelet therapy, specifically Brilinta. If cholecystectomy imperative, it would probably be best to perform this on continued dual anti-platelet therapy with Brilinta and aspirin. This was discussed with the patient. cc: MD Cruz Eaton MD
[2018-03-14] MEDS: LIPITOR PO SCH (21:04)
[2018-03-15] MEDS: DESYREL PO PRN (00:47)
[2018-03-15] MEDS: NS 1,000 ML IV SCH ×2 (03:51→22:39)
[2018-03-15] MEDS: ZOSYN 3.375 GM in NS 50 ML IV SCH ×5 (03:51→22:11)
[2018-03-15] MEDS: PEPCID IV SCH ×3 (03:51→17:16)
[2018-03-15] MEDS: PROTONIX IV SCH (06:05)
[2018-03-15] MEDS: SODIUM CHLORIDE 0.9% INJ SCH (06:05)
[2018-03-15] MEDS: BRILINTA PO SCH ×2 (08:32→20:15)
[2018-03-15] MEDS: CARAFATE PO SCH ×3 (08:32→20:15)
[2018-03-15] MEDS: TOPROL XL PO SCH (08:32)
[2018-03-15] MEDS: ASPIRIN PO SCH (08:32)
--- NOTE | 2018-03-15 09:11 | PROGRESS NOTE ---
DATE: 03/15/2018 SUBJECTIVE: Mr. Patel's vital signs are stable. CBC shows that the white count is slightly elevated at 11.94, hemoglobin has been down to 10.7 from 11.4. The liver enzymes have been somewhat elevated. Alkaline phosphatase in particular is 579. We are continuing IV Zosyn. cc: Cruz Sethi MD
[2018-03-15] MEDS: ZOFRAN IV PRN (14:40)
--- NOTE | 2018-03-15 14:46 | PROGRESS NOTE ---
DATE: 03/15/2018 SUBJECTIVE: Patient continues without further chest discomfort. However, he does relate tendency for postprandial nausea. OBJECTIVE: Vital Signs: Blood pressure 120/52, heart rate 66, oxygen saturation 99% on room air. There is no significant jugular distention chest is clear to auscultation bilaterally cardiac exam was a regular rate and rhythm without appreciable murmur or gallop. There is no evidence of peripheral edema. LABORATORY DATA: Includes a white blood cell count 11.9 form adequate. 32.8 hemoglobin 10.7 and platelet count 114,000. IMPRESSION: 1. Acute chest pain syndrome with evaluation suggesting noncardiac etiology and likely related to gallbladder disease. 2. Atherosclerotic coronary disease with acute myocardial infarction 02/14/2018, treated with emergent angioplasty/stenting with thrombectomy of acutely thrombosed mid left anterior descending coronary artery. Drug-eluting stent was utilized. Recent angiography: The admission shows stent to be widely patent. Left ventricular ejection fraction 55 to 60 percent. With hypokinesis of apical anterior wall. The apical septum and apex. RECOMMENDATIONS: 1. Continue current cardiovascular regimen unchanged. 2. Patient is at high risk for stent thrombosis with interruption of dual anti-platelet therapy, specifically Brilinta. If cholecystectomy impaired, it would e probably be best to perform this on continue dual anti-platelet therapy with Brilinta and aspirin. This was discussed with the patient and his . cc: MD Cruz Eaton MD
--- NOTE | 2018-03-15 16:48 | GENERAL SURGERY PROGRESS NOTE ---
DATE: 03/15/2018 TIME: 4:25 p.m. SUBJECTIVE: Mr. Patel continues to be symptomatic. He does not tolerate p.o. intake well. He is nauseated all the time. He is not particularly tender on examination. OBJECTIVE: Vital Signs: He is afebrile. Heart rate is 62. Blood pressure is 133/57. White count was 11,900 yesterday. His LFTs remain elevated with an ALK PHOS of 579. The ultrasound yesterday showed a persistently dilated gallbladder and some thickening of the wall. ASSESSMENT AND PLAN: In view of his persistent symptoms I think we should proceed with a cholecystectomy. We discussed the increased risks because of his antiplatelet therapy. He understands and he wants to proceed and we have him on the schedule for tomorrow, 03/16/2018. They understand and agree to proceed. cc: MD Cruz Vasquez MD
[2018-03-15] MEDS: PHENERGAN IV PRN (19:01)
[2018-03-15] MEDS: NORCO-5 PO PRN (19:51)
[2018-03-15] MEDS: MORPHINE IV PRN (20:15)
[2018-03-15] MEDS: LIPITOR PO SCH (20:15)
[2018-03-16] MEDS: ZOSYN 3.375 GM in NS 50 ML IV SCH ×4 (03:05→21:56)
[2018-03-16] MEDS: PEPCID IV SCH ×2 (04:07→16:49)
[2018-03-16] MEDS: PROTONIX IV SCH ×2 (05:57→06:02)
[2018-03-16] MEDS: SODIUM CHLORIDE 0.9% INJ SCH (05:57)
[2018-03-16] MEDS: TOPROL XL PO SCH (09:03)
--- NOTE | 2018-03-16 09:12 | PROGRESS NOTE ---
DATE: 03/16/2018 Mr. Patel is doing well this morning, except that he has mild headache. His lungs are clear. Heart sounds are normal. He is in regular sinus rhythm. Vital signs are stable. He is going for cholecystectomy this morning. He understands the risk, as he is on 2 anti-platelet agents. Overall condition is satisfactory before the surgery. cc: Cruz Sethi MD
[2018-03-16] MEDS ORDERED: FENTANYL ONE (09:36)
[2018-03-16] MEDS ORDERED: DIPRIVAN 1% ONE (09:42)
[2018-03-16] MEDS ORDERED: XYLOCAINE-MPF 2% ONE ×2 (09:42→10:14)
[2018-03-16] MEDS ORDERED: QUELICIN (DOSE) ONE (09:43)
[2018-03-16] MEDS ORDERED: NORCURON ONE (09:44)
[2018-03-16] MEDS ORDERED: SODIUM CHLORIDE 0.9% 10 ML ONE (09:44)
[2018-03-16] MEDS ORDERED: PEPCID ONE (10:03)
[2018-03-16] MEDS ORDERED: REGLAN ONE (10:03)
[2018-03-16] MEDS ORDERED: SENSORCAINE 0.5%-EPI 1:200,000 ONE (10:13)
[2018-03-16] MEDS ORDERED: AMIDATE ONE (10:14)
[2018-03-16] MEDS ORDERED: LR 1,000 ML ONE (10:14)
[2018-03-16] MEDS ORDERED: SODIUM CHLORIDE 0.9% ONE (10:14)
[2018-03-16] MEDS ORDERED: ZOFRAN ONE (10:36)
[2018-03-16] MEDS ORDERED: OFIRMEV 1000 MG/ISOTONIC SOLN 1,000 MG/100 ML BOTTLE ONE (10:44)
[2018-03-16] MEDS ORDERED: ROBINUL ONE (11:10)
[2018-03-16] MEDS ORDERED: NEOSTIGMINE ONE (11:10)
--- NOTE | 2018-03-16 11:39 | OPERATIVE NOTE ---
PROCEDURE DATE: 03/16/2018 PROCEDURE: Laparoscopic cholecystectomy with operative cholangiogram. SURGEON: Lencho Houston MD. TOPSTITCHER LOCKSTITCH: SHELLIE Porter. PREOPERATIVE DIAGNOSIS: Acalculous cholecystitis. POSTOPERATIVE DIAGNOSIS: Acalculous cholecystitis. FINDINGS: The cholangiogram revealed a normal size common duct, free flow in the duodenum. No intraluminal filling defects were seen. DESCRIPTION OF PROCEDURE: After satisfactory general endotracheal anesthesia was achieved, the abdomen was prepped and draped in a sterile fashion. We anesthetized the skin at the base of the umbilicus, incised the skin, and carried our incision of the fascia. We scored the fascia, introduced 11 trocar Optiview technique into the abdominal cavity. We insufflated through this trocar. Under direct visualization, used a 5 trocar midclavicular line, a 5 trocar near the anterior axillary line, 11 mm trocar in the midepigastrium. We placed the patient in reverse Trendelenburg and turned him to the left. The liver appeared somewhat floppy. The colon was a bit dilated. We identified the fundus of the gallbladder, reflected it cephalad. There was edema in the wall of the gallbladder. We began dissection of the triangle of Calot, identified the cystic duct. We identified the cystic artery. We developed the space and obtained a critical view. We then clipped the artery proximally x2, distally x1, and divided it. We clipped the cystic duct near the junction of the gallbladder. We then incised the cystic duct, introduced a [place] catheter, shot the cholangiogram. The findings above were noted. We removed the cholangiogram catheter, clipped the cystic duct on the opposite side of cystic ductotomy x2, and then transected it. We then used the cautery spatula to dissect the gallbladder away from the liver. We achieved good hemostasis, as we progressed up the gallbladder fossa. After complete separation of gallbladder from the liver, we changed video laparoscope through the mid epigastric trocar. We introduced a claw forceps through the umbilical trocar and grasped the infundibulum. We delivered the gallbladder out of the abdominal cavity through the umbilical trocar site. We looked back into the gallbladder fossa, and it was hemostatic. We aspirated what fluid he had collected. We then were satisfied that the bleeding was not a problem. We then desufflated and removed our trocars. We closed the fascia in the epigastrium with a 2-0 Polysorb fascial stitch. We closed the fascia at the umbilicus with 2-0 Polysorb fascial stitch. We placed 2-0 Polysorb stitches in the 5 trocar sites as well. We then closed the skin at each incision with 4-0 Polysorb subcuticular stitches. Sterile OpSite were applied. He tolerated it well. Was sent to the recovery room in satisfactory condition. cc: MD Cruz Vasquez MD
[2018-03-16] MEDS: ASPIRIN PO SCH (13:27)
[2018-03-16] MEDS: BRILINTA PO SCH ×2 (13:28→21:54)
[2018-03-16] MEDS: CARAFATE PO SCH ×3 (13:28→21:53)
[2018-03-16] MEDS: NORCO-10 PO PRN ×2 (13:28→19:07)
--- NOTE | 2018-03-16 14:20 | Diag Imaging Result Doc PS360 ---
EXAM: OPERATIVE CHOLANGIOGRAM 03/16/2018 HISTORY: GALLBLADDER DX TECHNIQUE: Intraoperative cholangiogram one view, 31 seconds fluoroscopy time, 0.13 mGy. COMMENT: There is contrast in the duodenum and no filling defects are demonstrated in the common hepatic or common bile ducts. IMPRESSION: No evidence retained stones. Electronically signed by Abdiel Sanchez 03/16/2018 2:18 PM
[2018-03-16] MEDS: NS 1,000 ML IV SCH (16:49)
[2018-03-16] MEDS: LIPITOR PO SCH (21:53)
[2018-03-16] MEDS: DESYREL PO PRN (21:54)
[2018-03-17] MEDS: NS 1,000 ML IV SCH (01:26)
[2018-03-17] MEDS: ZOSYN 3.375 GM in NS 50 ML IV SCH ×2 (03:25→09:40)
--- NOTE | 2018-03-17 05:05 | PROGRESS NOTE ---
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 He had a cholecystectomy done earlier today by Dr. Houston. It seems like he is not bleeding and the wound looks very well. Vital signs are stable. We are going to repeat the CBC in the morning. cc: Cruz Sethi MD
[2018-03-17 05:33] LABS: BASO# 0.05 X1000 (0.0-0.2); BASO% 0.4 % (0.0-0.8); EOS# 3.84 X1000 (0.0-0.7); EOS% 32.2 % (0.0-10.0); HEMATOCRIT 34.1 % (42.0-52.0); HEMOGLOBIN 11.1 g/dL (14.0-18.0); LYMPH# 1.42 X1000 (1.2-3.4); LYMPH% 11.9 % (20.5-51.1); MCH 29.8 PG (27-31); MCHC 32.6 g/dL (33-37); MCV 91.7 FL (81-99); MONO# 0.64 X1000 (0.11-0.59); MONO% 5.4 % (1.7-9.3); MPV 10.1 FL (7.4-10.4); NEUT# 5.97 X1000 (1.4-6.5); NEUT% 50.1 % (42.2-75.2); PLT 184 X1000 (130-400); RBC 3.72 XMIL (4.7-6.1); RDW 14.5 % (11.5-14.5); WBC 11.92 X1000 (4.8-10.8)
[2018-03-17 05:44] LABS: AGAP 9; BUN 10 mg/dL (8-22); CHLORIDE 107 mmol/L (98-107); COSMO 282; ESTIMATED GFR > 60; GLUCOSE 90 mg/dL (70-104); POTASSIUM 3.4 mmol/L (3.5-5.1); SODIUM 142 mmol/L (136-145); TCO2 26 mmol/L (25-35)
[2018-03-17] MEDS: PROTONIX IV SCH (06:32)
[2018-03-17] MEDS: PEPCID IV SCH (06:32)
[2018-03-17] MEDS: CARAFATE PO SCH (08:11)
[2018-03-17] MEDS: ASPIRIN PO SCH (08:11)
[2018-03-17] MEDS: BRILINTA PO SCH (08:11)
[2018-03-17] MEDS: TOPROL XL PO SCH (08:11)
[2018-03-17 08:35] LABS: EOS 28 % (1-10); LYMPHS 16 % (21-51); MONO 8 % (1-9); SEGS 48 % (42-75)
--- NOTE | 2018-03-17 09:44 | PROGRESS NOTE ---
DATE: 03/17/2018 SUBJECTIVE: Mr. Patel is doing better. No chest pain. He overall is feeling better. He tolerated liquid well. OBJECTIVE: Lungs: Clear. Heart: Sounds are normal. There is no current bleeding. LABORATORIES: CBC does not show any big change. Actually hemoglobin has come up a little bit. Overall condition is unchanged. Hemoglobin is now 11.1 from 10.7. Last night INR was 1.24. Chemistries/electrolytes reveal mild hypokalemia, potassium 3.4. Otherwise negative. cc: Cruz Sethi MD
[2018-03-17 12:14] VITALS: BP 139/61
--- NOTE | 2018-03-18 04:08 | GENERAL SURGERY PROGRESS NOTE ---
DATE: 03/17/2018 TIME: 1:00 p.m. SUBJECTIVE: Mr. Patel is taking liquids satisfactorily. His white count is stable, his hemoglobin is stable. His wounds look fine. It is okay from the surgical point of view for him to go home. He is to avoid fatty foods. He will return to the office in 1 week to see me. cc: MD Cruz Vasquez MD
--- NOTE | 2018-03-18 12:39 | DISCHARGE SUMMARY ---
ADMISSION DATE: 03/08/2018 DISCHARGE DATE: 03/17/2018 HISTORY OF PRESENT ILLNESS: Mr. Patel is a 78-year-old white gentleman who came in with severe abdominal pain. He recently sustained acute myocardial infarction and had a drug-eluting stent put in. On laboratory data in the hospital, the chest x-ray was unremarkable except for emphysema and apical fibrosis. EKG revealed normal sinus rhythm, possible left atrial enlargement, anterior infarct, age undetermined. There were deep T-waves in lead V3, V4. Echocardiogram Doppler study revealed left ventricular function was preserved with ejection fraction between 55% and 60%. No pericardial effusion. There was no diastolic dysfunction. There was no mass or thrombosis. CT scan of the abdomen and pelvis had revealed the presence of distended gallbladder with trace pericholecystic fluid, fatty liver, and atherosclerosis. COURSE IN THE HOSPITAL: Dr. Houston was consulted. Later on, Cardiology was consulted. It was a difficult decision to make as he had gallbladder pains, but he had drug-eluting stent with 2 anti- platelet drugs going. We treated the acalculous cholecystitis with IV antibiotics, which did not help him as much. Finally, Dr. Houston decided to operate on him. The patient agreed to go for surgery. Postoperative course was unremarkable. He was discharged to see Dr. Houston, the cofounder. His cofounder is Dr. Ortiz and he will also see him in about 7 days. FINAL DIAGNOSES: 1. Severe abdominal pain. 2. Acalculous cholecystitis. 3. Recent acute myocardial infarction with drug-eluting stent. cc: Cruz Sethi MD MTDD
== END 2018-03-17 14:50 | disposition home or self-care (01) | DRG 417 ==
LOC: ED 14:36 → EDIPHOLD 21:41 → SUATTDRO 21:41 → 3S 03-09 22:00
PROVIDERS: ADMIT Internal Medicine; ATTEND Internal Medicine
CPT/HCPCS: 36415; 71020; 71046; 74177; 74300; 76700; 76705; 78226; 80048; 80053; 80076; 82550; 82553; 82565; 82948; 83735; 83880; 84484; 85025; 85610; 85730; 86850; 86900; 86901; 88304; 93005; 93010; 93306; 93458; 94640; 96361; 96365; 96367; 96372; 96375; 96376; 99285; A9270; A9537; C1760; C9113; J0131; J0330; J1644; J1650; J2175; J2250; J2270; J2405; J2543; J2550; J2765; J3010; J7030; J7120; Q9966; Q9967; S0028; S0164; XXXXX